=== PATIENT | male | born 1950 | race Caucasian/White ===

== ENCOUNTER 2024-02-06 13:54 | Day surgery (SDC) | payer OTHER, SELFPAY ==
[2024-01-30 14:32] VITALS: BMI 33.6
[2024-02-06] VITALS (14 sets, daily range): BP systolic 162–206; BP diastolic 100–119; PULSE 54–64; RESP 10–19; TEMP 36.4–37; O2SAT 92–99; BMI 33.6
[2024-02-06] MEDS: LACTATED RINGERS 1,000 ML 42 ML IV (14:56)
--- NOTE | 2024-02-06 15:53 | PM.PREOP ---
Pre-operative Note Interval Note History & Physical reviewed/Exam performed by Physician: Yes Changes to H&P: No
[2024-02-06] MEDS: CEFAZOLIN 2 GM/100 ML PREMIX 100 ML IV (16:25)
--- NOTE | 2024-02-06 16:44 | SUR.OPER ---
Supine on padded OR bed, head on pillow, arms secured on padded arm boards at <90 degrees abduction, legs uncrossed, safety belt at thigh, tape over blanket over lower legs.
[2024-02-06] MEDS: BUPIVACAINE 0.25% (PF) 30 ML, EPINEPHrine 0.15 MG INJ (16:50)
--- NOTE | 2024-02-06 17:17 | PM.OP.1 ---
Operative Date/Time/Diagnoses Date of procedure: 02/06/24 Time of procedure: 17:18 Pre-op diagnosis: Right knee internal derangement right knee medial medial meniscus tear Post-op diagnosis: same Procedure & Clinicians Procedure: Arthroscopic debridement partial medial meniscectomy right knee CPT code 58866 Same procedure as scheduled: Yes Indications: The patient is a 73-year-old male with right knee pain this was an acute onset of medial knee pain in October when he was running on a treadmill he heard and felt a pop followed by pain and swelling. He has no history of prior injuries pain isolated to the medial compartment. He has a medial meniscus tear he as mild arthritis only. He has had extensive conservative treatment and failed. He has been indicated for arthroscopic partial medial meniscectomy. He understands there are risks for worsening arthritis and persistent pain but overall he is minimal degenerative changes and he has not currently a candidate for knee arthroplasty. Having mechanical symptoms and does not desire injection. Risks and benefits of surgery were discussed and consent was signed. Surgeon: Maritza Thomas Click Yes if Unassisted: Yes Anesthesia Type: General and Local Operative Notes Findings: Suprapatellar pouch normal Patellofemoral joint. Focal grade 3 chondromalacia Medial gutter normal Lateral gutter were normal Medial compartment degenerative meniscus tear, complex with extrusion into the medial gutter. Debrided with shaver and biters to stable border. Diffuse grade 3 cartilage change on the tibial plateau and medial femoral condyle Notch. ACL and partially visualized PCL Lateral compartment grade 2 chondromalacia. Intact meniscus. Closure Type: primary Specimen(s): none sent Estimated Blood Loss (mL): 5 Blood products transfused: none Tourniquet time (min): 30 Procedure in detail: Patient was seen in the preoperative area the site of surgery was marked informed consent confirmed this was the right knee. The patient was taken back to the operating room by the anesthesia team and positioned on the operative table. Bony prominences were well padded. A well-padded thigh tourniquet was applied. Right lower extremity was prepped and draped in standard sterile fashion a formal time-out procedure was performed confirming the patient's side and site of surgery administration of preoperative antibiotic. All were in agreement. Esmarch was used for exsanguination tourniquet elevated on the thigh to 250 mmHg. The lateral arthroscopic portal was established. Diagnostic arthroscopy was carried out in the usual fashion with the findings listed above. In the medial portal was established and the shaver inserted. The medial meniscus tear was demonstrated and debrided with a shaver and biter. During the procedure the patient's blood pressure did elevate and overwhelmed the tourniquet therefore the tourniquet was released the anesthesia personnel administered medications to lower the patient's blood pressure and then the tourniquet was raised to 250 mm of mercury with good hemostasis and the remainder of the procedure was carried out finishing debriding the medial meniscus tear. Once this was completed the instruments were removed from the knee and excess fluid was removed. The portal sites were closed with 3-0 nylon suture and 10 cc of 0.25% Marcaine with epinephrine was injected into the knee for local anesthetic as well as 10 cc around the portal sites for postoperative pain control. Dressings were placed with Xeroform gauze Webril and an Reji wrap. Patient was woken from anesthesia taken to recovery room in good condition there were no immediate complications from this procedure. All counts were correct. Complications: none Post-operative Condition: stable Disposition: PACU Plan for aftercare: Full weight-bearing as tolerated. Range of motion as tolerated. May remove dressings and place Band-Aids over the incision sites and 3 days. Aspirin for DVT prophylaxis. Assistive devices as needed.
[2024-02-06] MEDS: HYDROCODONE/ACET 5/325 TABLET 1 TAB PO (17:42)
[2024-02-06] MEDS: OXYCODONE IR 5 MG TABLET PO (18:02)
[2024-02-06] MEDS: LABETALOL 20 MG/4 ML SYRINGE IV (18:06)
== END 2024-02-06 18:35 | disposition home or self-care (01) ==
PROVIDERS: Referring Provider Orthopaedic Surgery Foot and Ankle Surgery; Visit Provider Orthopaedic Surgery Foot and Ankle Surgery
PROC: (CPT 29870; principal; 2024-02-06 15:45)
DX: S83.241A Other tear of medial meniscus, current injury, right knee, initial encounter (principal); M23.91 Unspecified internal derangement of right knee; M94.261 Chondromalacia, right knee
CPT/HCPCS: 29881; J0171; J0690; J2405; J2704; J3010